=== PATIENT | female | born 1940 | race Caucasian/White ===

== ENCOUNTER → 2017-08-26 10:54 | Outpatient (CLI) | payer MEDICARE, SELFPAY ==
[2017-08-26 11:31] LABS: Amphetamine Urine VISTA NEGATIVE (<1000 ng/mL); Barbiturate Urine VISTA NEGATIVE (< 200 ng/mL); Benzodiazepine Urine VISTA NEGATIVE (< 200 ng/mL); Cocaine Urine VISTA NEGATIVE (< 300 ng/mL); Ecstacy Urine VISTA NEGATIVE (< 500 ng/mL); Methadone Urine VISTA POSITIVE (< 300 ng/mL); PCP Urine VISTA NEGATIVE (< 25 ng/mL); THC Urine VISTA NEGATIVE (< 50 ng/mL); Vista UDS pH Range 5
== END ==
PROVIDERS: Family Provider Family Medicine; PCP Family Medicine; Visit Provider Anesthesiology Pain Medicine
DX: F11.20 Opioid dependence, uncomplicated (principal)
CPT/HCPCS: 80307

== ENCOUNTER → 2018-07-13 09:50 | Outpatient (CLI) | payer MEDICARE, SELFPAY ==
[2018-07-13 11:07] LABS: Amphetamine Urine VISTA NEGATIVE (<1000 ng/mL); Barbiturate Urine VISTA NEGATIVE (< 200 ng/mL); Benzodiazepine Urine VISTA NEGATIVE (< 200 ng/mL); Cocaine Urine VISTA NEGATIVE (< 300 ng/mL); Ecstacy Urine VISTA NEGATIVE (< 500 ng/mL); Methadone Urine VISTA POSITIVE (< 300 ng/mL); PCP Urine VISTA NEGATIVE (< 25 ng/mL); THC Urine VISTA NEGATIVE (< 50 ng/mL); Vista UDS pH Range 5
== END ==
PROVIDERS: Referring Provider Anesthesiology Pain Medicine; Visit Provider Anesthesiology Pain Medicine
DX: F11.20 Opioid dependence, uncomplicated (principal)
CPT/HCPCS: 80307

== ENCOUNTER 2018-10-11 23:55 | Inpatient (IN) | payer MEDICARE, SELFPAY ==
[2018-10-12 00:10] VITALS: BP 138/44; PULSE 63; RESP 18; TEMP 37.1; O2SAT 100
[2018-10-12 00:18] VITALS: BMI 27.5
--- NOTE | 2018-10-12 00:36 | RAD_ITS ---
STUDY: X-RAY - ABDOMEN/PELVIS REASON FOR EXAM: Female, 78 years old. Abdominal pain. TECHNIQUE: AP supine abdomen COMPARISON: None. FINDINGS: Normal visualized lung bases. There is an unremarkable bowel gas pattern. Stool is present throughout the colon which may represent constipation. There is no demonstrated free abdominal air. The visualized liver, spleen and kidneys are grossly normal in size and morphology. Normal soft tissue structures. Postoperative changes of lumbar fusion. Bilateral rods and pedicle screws. Surgical clips right upper quadrant. RAD/Abdomen Single View IMPRESSION: Nonspecific bowel gas pattern without evidence of obstruction. Consider constipation. Electronically Signed: Alexander Canseco MD at 7:29 EDT , Service support ,
[2018-10-12 00:38] VITALS: BMI 27.5
[2018-10-12] MEDS: Morphine 2 MG/ML Syringe IV ×5 (00:58→20:14)
[2018-10-12] MEDS: metroNIDAZOLE 500 MG/100 ML BAG 100 MG IV ×4 (00:59→21:59)
[2018-10-12] MEDS: MELATONIN 3 MG TABLET PO (00:59)
[2018-10-12] MEDS: 0.9% Normal Saline 1,000 ML 100 ML IV ×2 (02:32→14:38)
[2018-10-12] MEDS: Ceftriaxone 1 GM/50 ML BAG IV (02:32)
--- NOTE | 2018-10-12 02:32 | PCM.HP.STD ---
Problem List (1) Ureteric stone Status: Acute (2) Diverticulitis Status: Suspected (3) SADIA (acute kidney injury) Status: Acute History of Present Illness Date of Admission: 10/12/18 Chief Complaint: left inguinal pain The patient is a 78 year old F with a significant history of chronic back pain and arthritis; previous history of pancreatitis; hypertension and depression who presented to the emergency department at [facility] with progressively worsening excruciating nonradiating left inguinal pain that started 2 days before presentation. Her pain worsens with movement. She takes methadone chronically for back pain and it helped a little bit with a left inguinal pain. Associated with her symptoms is a subjective fever without chills. Also she reports she reports nausea with dry heaving but without vomiting. She reports a decrease in her frequency of urination. Further, she has anorexia. She thought her symptoms was similar to her previous history of pancreatitis. At the [facility] CT of the abdomen showed left perirenal stranding and 5 mm left distal ureteric stone. Also notably patient had elevated leukocytosis of 18,700. Because ED doctor was concern of probable diverticular disease on CT of the abdomen the case was again discussed with radiologist. Per emergency department doctor upon further discussion with radiologist, radiologist thought diverticular disease was inconclusive as patient had rods at her back that interfered with imaging; plus imaging was done without contrast Patient was empirically started on Zosyn at [facility] for probable diverticular disease. Because [facility] did not have urology service, the patient was transferred to our hospital. Past Medical History Medical History: Medical History (Last Updated 10/12/18 @ 02:55 by Jonah Levi MD) Chronic back pain M54.9, G89.29 Allergies amphetamine [From Adderall] Allergy (Verified 10/12/18 00:22) Unknown aspirin Allergy (Verified 10/12/18 00:22) Bleeding dextroamphetamine [From Adderall] Allergy (Verified 10/12/18 00:22) Unknown gabapentin [From Neurontin] Allergy (Verified 10/12/18 00:22) Unknown tramadol [From Ultram] Allergy (Verified 10/12/18 00:22) Unknown Home Medications: Ambulatory Orders Medication Instructions Recorded Amlodipine Besylate 5 mg PO DAILY 10/12/18 Duloxetine Hcl [Cymbalta] 60 mg PO DAILY 10/12/18 Lisinopril 5 mg PO DAILY 10/12/18 Methadone HCl 10 mg PO TID 10/12/18 Omeprazole 40 mg PO DAILY 10/12/18 Ondansetron HCl 4 mg PO Q8H PRN PRN 10/12/18 Surgical History: appendectomy, hysterectomy, - - back surgery x 2. Back surgery with rods Lives: Alone Smoking Status: Former smoker - Quit smoking May 2018 after diagnosis of sepsis due to pneumonia. - *Family History Maternal History Items: - - HER MOTHER AT AGE 31; AND SHE DOES NOT KNOW HER MATERNAL MEDICAL HISTORY Paternal History Items: Diabetes, Hypertension, - - Brain aneursym Review of Systems Constitutional: Reports: Fever - subjective. Denies: Chills, Weight Change HEENT: Denies: Head Aches, Sinus Congestion, Sinus Drainage Cardiovascular: Denies: Chest Pain, Palpitations Respiratory: Denies: Cough, Shortness of breath at rest, Sputum production Gastrointestinal: Reports: Abdominal Pain, Nausea. Denies: Vomiting Genitourinary: Reports: Frequency - decrease frequency. Denies: Dysuria Musculoskeletal: Denies: Joint Pain, Joint Tenderness Skin: Denies: Rash, Wounds Neurological: Denies: Numbness, Tingling, Focal weakness Psychiatric: Denies: Anxiety, Depression, Homicidal Ideations, Suicidal Ideations Hematologic/ Lymphatic: Denies: Easy Bruising, Easy Bleeding VTE Information - Inpt Only VTE Present on Admission: No VTE Mechan Device Prophylaxis: SCD's VTE Pharm Prophylaxis ordered?: No Patient Problems: Active and Suspected Problems (Last Updated 10/12/18 @ 02:55 by Jonah Levi MD) Ureteric stone (Acute) Diverticulitis (Suspected) SADIA (acute kidney injury) (Acute) - Physical Exam General: Alert, Oriented x3, Cooperative HEENT: Atraumatic, PERRLA, EOMI, Normocephalic Neck: Supple, No JVD, Negative Carotid Bruits Lungs: Clear to auscultation, Normal air movement Cardiovascular: Regular rate, No murmurs Abdomen: Bowel Sounds Present, Soft, Tender - left lower quadrant. Extremities: No edema, Capillary Refill Less than 3 Seconds Skin: No rashes, No breakdown Musculoskeletal: No Tenderness to Palpation of Joints or Extremities Neurological: Cranial nerves II-XII grossly intact Psych/Mental Status: Normal Affect, Appropriate Vital Signs Temp Pulse Resp BP Pulse Ox 98.7 F 63 18 138/44 H 100 10/12/18 00:10 10/12/18 00:10 10/12/18 00:10 10/12/18 00:10 10/12/18 00:10 Oxygen Delivery Method Room Air Weight: 70.443 kg Body Mass Index (BMI) 27.5 Assessment/Plan All Active Problems (Last Updated 10/12/18 @ 02:55 by Jonah Levi MD) Ureteric stone (Acute) SADIA (acute kidney injury) (Acute) The patient is a 78 year old F with a significant history of chronic back pain and arthritis; previous history of pancreatitis; hypertension and depression who presented to the emergency department at [facility] with progressively worsening excruciating nonradiating left inguinal pain and found to have left perinephric stranding; left 5 mm ureteric stone; leukocytosis; elevated creatinine above baseline and probable diverticular inflammation. Left ureteric stone. At [facility] urinalysis was abnormal but CT scan showed left daniela-nephric stranding access and 5mm left ureteric stone The case was discussed with Dr. Garcia who is interested in following patient. Dr. Garcia recommended KUB; ordered. We will keep patient n.p.o. Hold all home p.o. medications except methadone to prevent withdrawal. PRN morphine ordered. Supportive treatment with IV fluids and antiemetics, Zofran. PT/INR ordered Probable diverticulitis. At [facility] urinalysis CT scan was not conclusive of diverticular disease. Patient was started on Zosyn in the emergency department. Because of SADIA we will hold on Zosyn for now. Scheduled ceftriaxone and metronidazole ordered. Trend CBC. NPO SADIA At [facility] her creatinine was 2.1; and her BUN was 31. Emergency department doctor reported that in May of this year (at [facility]) patient was diagnosed with sepsis due to pneumonia and her creatinine at that time was 2.8. Her creatinine at that time trended to 1.4. Emergency doctor reported baseline creatinine of 1.2-1.4. Gentle normal saline hydration. Avoid nephrotoxics Hold Lisinopril Trend BMP. Hypertension On presentation her systolic blood pressure was not within goal but fairly stable. Because of n.p.o. status hold amlodipine. Lisinopril held because of SADIA PRN Hydralazine IV ordered. DVT prophylaxis SCD. Consider chemical thromboprophylaxis after probable urologic procedure Code Visit Inpatient E&M: 92253 Init Hosp L3
--- NOTE | 2018-10-12 02:52 | HP.PCM_ITS ---
Problem List (1) Ureteric stone Status: Acute (2) Diverticulitis Status: Suspected (3) SADIA (acute kidney injury) Status: Acute History of Present Illness Date of Admission: 10/12/18 Chief Complaint: left inguinal pain The patient is a 78 year old F with a significant history of chronic back pain and arthritis; previous history of pancreatitis; hypertension and depression who presented to the emergency department at [facility] with progressively worsening excruciating nonradiating left inguinal pain that started 2 days before presentation. Her pain worsens with movement. She takes methadone chronically for back pain and it helped a little bit with a left inguinal pain. Associated with her symptoms is a subjective fever without chills. Also she reports she reports nausea with dry heaving but without vomiting. She reports a decrease in her frequency of urination. Further, she has anorexia. She thought her symptoms was similar to her previous history of pancreatitis. At the [facility] CT of the abdomen showed left perirenal stranding and 5 mm left distal ureteric stone. Also notably patient had elevated leukocytosis of 18,700. Because ED doctor was concern of probable diverticular disease on CT of the abdomen the case was again discussed with radiologist. Per emergency department doctor upon further discussion with radiologist, radiologist thought diverticular disease was inconclusive as patient had rods at her back that interfered with imaging; plus imaging was done without contrast Patient was empirically started on Zosyn at [facility] for probable diverticular disease. Because [facility] did not have urology service, the patient was transferred to our hospital. Past Medical History Medical History: Medical History (Last Updated 10/12/18 @ 02:55 by Jonah Levi MD) Chronic back pain M54.9, G89.29 Allergies amphetamine [From Adderall] Allergy (Verified 10/12/18 00:22) Unknown aspirin Allergy (Verified 10/12/18 00:22) Bleeding dextroamphetamine [From Adderall] Allergy (Verified 10/12/18 00:22) Unknown gabapentin [From Neurontin] Allergy (Verified 10/12/18 00:22) Unknown tramadol [From Ultram] Allergy (Verified 10/12/18 00:22) Unknown Home Medications: Ambulatory Orders Medication Instructions Recorded Amlodipine Besylate 5 mg PO DAILY 10/12/18 Duloxetine Hcl [Cymbalta] 60 mg PO DAILY 10/12/18 Lisinopril 5 mg PO DAILY 10/12/18 Methadone HCl 10 mg PO TID 10/12/18 Omeprazole 40 mg PO DAILY 10/12/18 Ondansetron HCl 4 mg PO Q8H PRN PRN 10/12/18 Surgical History: appendectomy, hysterectomy, - - back surgery x 2. Back surgery with rods Lives: Alone Smoking Status: Former smoker - Quit smoking May 2018 after diagnosis of sepsis due to pneumonia. - *Family History Maternal History Items: - - HER MOTHER AT AGE 31; AND SHE DOES NOT KNOW HER MATERNAL MEDICAL HISTORY Paternal History Items: Diabetes, Hypertension, - - Brain aneursym Review of Systems Constitutional: Reports: Fever - subjective. Denies: Chills, Weight Change HEENT: Denies: Head Aches, Sinus Congestion, Sinus Drainage Cardiovascular: Denies: Chest Pain, Palpitations Respiratory: Denies: Cough, Shortness of breath at rest, Sputum production Gastrointestinal: Reports: Abdominal Pain, Nausea. Denies: Vomiting Genitourinary: Reports: Frequency - decrease frequency. Denies: Dysuria Musculoskeletal: Denies: Joint Pain, Joint Tenderness Skin: Denies: Rash, Wounds Neurological: Denies: Numbness, Tingling, Focal weakness Psychiatric: Denies: Anxiety, Depression, Homicidal Ideations, Suicidal Ideations Hematologic/ Lymphatic: Denies: Easy Bruising, Easy Bleeding VTE Information - Inpt Only VTE Present on Admission: No VTE Mechan Device Prophylaxis: SCD's VTE Pharm Prophylaxis ordered?: No Patient Problems: Active and Suspected Problems (Last Updated 10/12/18 @ 02:55 by Jonah Levi MD) Ureteric stone (Acute) Diverticulitis (Suspected) SADIA (acute kidney injury) (Acute) - Physical Exam General: Alert, Oriented x3, Cooperative HEENT: Atraumatic, PERRLA, EOMI, Normocephalic Neck: Supple, No JVD, Negative Carotid Bruits Lungs: Clear to auscultation, Normal air movement Cardiovascular: Regular rate, No murmurs Abdomen: Bowel Sounds Present, Soft, Tender - left lower quadrant. Extremities: No edema, Capillary Refill Less than 3 Seconds Skin: No rashes, No breakdown Musculoskeletal: No Tenderness to Palpation of Joints or Extremities Neurological: Cranial nerves II-XII grossly intact Psych/Mental Status: Normal Affect, Appropriate Vital Signs Temp Pulse Resp BP Pulse Ox 98.7 F 63 18 138/44 H 100 10/12/18 00:10 10/12/18 00:10 10/12/18 00:10 10/12/18 00:10 10/12/18 00:10 Oxygen Delivery Method Room Air Weight: 70.443 kg Body Mass Index (BMI) 27.5 Assessment/Plan All Active Problems (Last Updated 10/12/18 @ 02:55 by Jonah Levi MD) Ureteric stone (Acute) SADIA (acute kidney injury) (Acute) The patient is a 78 year old F with a significant history of chronic back pain and arthritis; previous history of pancreatitis; hypertension and depression who presented to the emergency department at [facility] with progressively worsening excruciating nonradiating left inguinal pain and found to have left perinephric stranding; left 5 mm ureteric stone; leukocytosis; elevated creatinine above baseline and probable diverticular inflammation. Left ureteric stone. At [facility] urinalysis was abnormal but CT scan showed left daniela- nephric stranding access and 5mm left ureteric stone The case was discussed with Dr. Garcia who is interested in following patient. Dr. Garcia recommended KUB; ordered. We will keep patient n.p.o. Hold all home p.o. medications except methadone to prevent withdrawal. PRN morphine ordered. Supportive treatment with IV fluids and antiemetics, Zofran. PT/INR ordered Probable diverticulitis. At [facility] urinalysis CT scan was not conclusive of diverticular disease. Patient was started on Zosyn in the emergency department. Because of SADIA we will hold on Zosyn for now. Scheduled ceftriaxone and metronidazole ordered. Trend CBC. NPO SADIA At [facility] her creatinine was 2.1; and her BUN was 31. Emergency department doctor reported that in May of this year (at [facility]) patient was diagnosed with sepsis due to pneumonia and her creatinine at that time was 2.8. Her creatinine at that time trended to 1.4. Emergency doctor reported baseline creatinine of 1.2-1.4. Gentle normal saline hydration. Avoid nephrotoxics Hold Lisinopril Trend BMP. Hypertension On presentation her systolic blood pressure was not within goal but fairly stable. Because of n.p.o. status hold amlodipine. Lisinopril held because of SADIA PRN Hydralazine IV ordered. DVT prophylaxis SCD. Consider chemical thromboprophylaxis after probable urologic procedure Code Visit Inpatient E&M: 84441 Init Hosp L3
[2018-10-12] MEDS: Methadone 10 MG Tablet PO ×3 (05:50→22:04)
[2018-10-12 05:59] VITALS: BP 135/66; PULSE 68; RESP 18; TEMP 37.3; O2SAT 94
[2018-10-12 06:37] LABS: Anion Gap 9 (5-15); BUN 29 mg/dL (7-18); BUN/Creat Ratio 13.9 RATIO (10-20); Calcium,Total 7.9 mg/dL (8.5-10.1); Chloride 108 mmol/L (98-107); Creatinine, Serum 2.08 mg/dL (0.55-1.02); EST Glomerular Filtration Rate 25 mL/min (>60); Est Glom Filt Rate - Afr Amer 30 mL/min (>60); Estimated Creatinine Clearance 18.44 ml/min; Glucose 107 mg/dL (74-106); Potassium 4.2 mmol/L (3.5-5.1); Sodium Level 139 mmol/L (136-145)
[2018-10-12 06:57] LABS: Absolute Neutrophil Count 5.9 X10^3/uL (2.0-7.7); Basophil# 0.03 X10^3/uL; Basophil% 0.3 % (0-1); Eosinophils% 0.9 % (0-5); Hematocrit 31.9 % (37-47); Hemoglobin 9.8 g/dl (12.0-15.0); Lymphocyte % 31.4 % (19-41); Mean Corp Hgb Conc 30.7 g/gl (32-36); Mean Corpuscular Hgb 24.8 pg (27.0-32.0); Mean Corpuscular Volume 80.8 fL (81-99); Mean Platelet Vol. 10.8 fl (6.2-12.0); Monocyte# 1.29 X10^3/uL; Monocyte% 11.9 % (0-10); Neutrophil # 5.93 X10^3/uL (2.7-7.7); Neutrophil % 54.9 % (47-70); Platelet Count 284 K/mm3 (150-450); RBC Distribution Width CV 15.2 % (11.6-14.6); RBC Distribution Width SD 44.2 fl (35.1-43.9); Red Blood Count 3.95 M/mm3 (4.2-5.4); White Blood Count 10.8 K/mm3 (4.4-11.0)
[2018-10-12 06:58] LABS: POSITIVE COUNT NO; POSITIVE DIFFERENTIAL NO; POSITIVE MORPHOLOGY NO
[2018-10-12 07:12] VITALS: O2SAT 96
[2018-10-12 07:22] LABS: International Normalized Ratio 1.1; Prothrombin Time (Protime)PT. 14.4 SECONDS (11.7-14.9)
--- NOTE | 2018-10-12 07:44 | CON.PCM_ITS ---
Reason for Consult Date of Consultation: 10/12/18 Reason for Consultation: Left distal kidney stone History of Present Illness: The patient is a 78 year old female who was a transfer her to an outside hospital with an elevated white count of 18,000 question of diverticular disease and also apparently has a 5 mm stone in the distal left ureter. Today she complains still having pain in the left inguinal area. No nausea or vomiting. Today her white blood count is normal. No fevers or chills. Past Medical History Medical History: Medical History (Last Reviewed 10/12/18 @ 07:42 by Sabas Gacria MD) Chronic back pain M54.9, G89.29 Allergies amphetamine [From Adderall] Allergy (Verified 10/12/18 00:22) Unknown aspirin Allergy (Verified 10/12/18 00:22) Bleeding dextroamphetamine [From Adderall] Allergy (Verified 10/12/18 00:22) Unknown gabapentin [From Neurontin] Allergy (Verified 10/12/18 00:22) Unknown tramadol [From Ultram] Allergy (Verified 10/12/18 00:22) Unknown Home Medications: Ambulatory Orders Medication Instructions Recorded Amlodipine Besylate 5 mg PO DAILY 10/12/18 Duloxetine Hcl [Cymbalta] 60 mg PO DAILY 10/12/18 Lisinopril 5 mg PO DAILY 10/12/18 Methadone HCl 10 mg PO TID 10/12/18 Omeprazole 40 mg PO DAILY 10/12/18 Ondansetron HCl 4 mg PO Q8H PRN PRN 10/12/18 Surgical History: appendectomy, hysterectomy, - - back surgery x 2. 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 - *Family History Maternal History Items: - - HER MOTHER AT AGE 31; AND SHE DOES NOT KNOW HER MATERNAL MEDICAL HISTORY Paternal History Items: Diabetes, Hypertension, - - Brain aneursym Review of Systems Constitutional: Denies: Chills, Fever, Weight Change HEENT: Denies: Head Aches, Sinus Congestion, Sinus Drainage Cardiovascular: Denies: Chest Pain, Palpitations Respiratory: Denies: Cough, Shortness of breath at rest, Sputum production Gastrointestinal: Reports: Abdominal Pain. Denies: Nausea, Vomiting Genitourinary: Denies: Dysuria Musculoskeletal: Denies: Joint Pain, Joint Tenderness Skin: Denies: Rash, Wounds Neurological: Denies: Numbness, Tingling, Focal weakness Psychiatric: Denies: Anxiety, Depression, Homicidal Ideations, Suicidal Ideations Hematologic/ Lymphatic: Denies: Easy Bruising, Easy Bleeding Physical Exam - Physical Exam Vital Signs Temp 99.1 F 10/12/18 05:59 Pulse 68 10/12/18 05:59 Resp 18 10/12/18 05:59 BP 135/66 H 10/12/18 05:59 Pulse Ox 94 10/12/18 05:59 Intake & Output 10/10/18 10/11/18 10/12/18 23:59 23:59 23:59 Intake Total 571 / 571 Output Total 300 / 300 Balance 271 / 271 Weight: 70.443 kg Intake: IV fluid/meds 571 / 571 Output: Urine 300 / 300 General: Alert, Oriented x3 HEENT: Atraumatic Oral: Moist Mucosa Neck: Supple Lungs: Normal air movement Cardiovascular: Regular rate Laboratory Tests Past 24 Hrs 10/12/18 10/12/18 10/12/18 06:02 06:02 06:02 WBC 10.8 RBC 3.95 L Hgb 9.8 L Hct 31.9 L MCV 80.8 L MCH 24.8 L MCHC 30.7 L RDW 15.2 H RDW Differential 44.2 H Plt Count 284 MPV 10.8 Immature Gran % (Auto) 0.600 Neut % (Auto) 54.9 Lymph % (Auto) 31.4 Wallace % (Auto) 11.9 H Eos % (Auto) 0.9 Baso % (Auto) 0.3 Absolute Neuts (auto) 5.9 Absolute Lymphs (auto) 3.40 Total Counted Not Reportable PT 14.4 INR 1.1 Sodium 139 Potassium 4.2 Chloride 108 H Carbon Dioxide 22.0 Anion Gap 9 BUN 29 H Creatinine 2.08 H Estim Creat Clear Calc 18.44 Est GFR (MDRD) Af Amer 30 L Est GFR (MDRD) Non-Af 25 L BUN/Creatinine Ratio 13.9 Glucose 107 H Calcium 7.9 L Assessment/Plan All Active Problems (Last Reviewed 10/12/18 @ 07:42 by Sabas Garcia MD) Ureteric stone (Acute) SADIA (acute kidney injury) (Acute) 78-year-old female with obstructing stone in the distal left ureter. White blood count down to 10. No fevers or chills. Clinically stable does not look septic. We will have her regular food today do not anticipate doing any emergent procedure today we will add her to the schedule for Friday for left ESWL. She is agreeable with this also will place a left stent at the same time.
[2018-10-12] MEDS: Ondansetron 4 MG/2 ML Vial IV (08:37)
[2018-10-12 10:00] VITALS: BP 111/45; PULSE 80; RESP 16; TEMP 36.9; O2SAT 95
[2018-10-12] MEDS: Famotidine 20mg IV Push Syringe Q24 300 MG IV (10:03)
--- NOTE | 2018-10-12 11:15 | CASEMGMT ---
RN MIRNA Face to Face with patient for initial transition planning/care coordination assessment. RN CM introduced self and role at [facility]. Patient lying in bed, alert and oriented. Patient willing to participate in assessment and is able to answer all questions appropriately. Care providers, pharmacy, and demographics verified. Patient wishes to discharge home, denies need for home health at this time. Patient states she has no further needs or concerns at this time. CM to follow for discharge planning needs that may arise. PCP: Nii Specialists: Horacio, pain clinic Preferred Pharmacy: [facility] Insurance: [facility] Prescription Benefit: Yes Living Will/HPOA: yes, son Todd Casillas LNOK: Son and daughter in law Living Arrangements: Patient states that she lives on the same property as her son in a 1 story home with ramp to enter the home. Patient states she is independent for self care. Transportation: son or daughter in law DME/HHC: Patient states she has shower chair, raised toilet, walker, rollator, WC, and grab bars at home. Patient denies previous HHC. States she has been to SNF [address] in [place] before. Disposition Plan: Patient to discharge home with family support and follow-up plans in place. Kerry PEREA, RN, CM
[2018-10-12] MEDS: Magnesium Hydroxide 30 ML UDC 45 ML PO (14:39)
[2018-10-12 14:45] VITALS: BP 141/58; PULSE 90; RESP 18; TEMP 36.6; O2SAT 97
--- NOTE | 2018-10-12 17:45 | PCM.PROGNOTE ---
Patient Problems: Active and Suspected Problems (Last Reviewed 10/12/18 @ 07:42 by Sabas Garcia MD) Ureteric stone (Acute) Diverticulitis (Suspected) SADIA (acute kidney injury) (Acute) Subjective: Patient is a 78-year-old female transferred to [facility] on 10/12/2018 from [facility] with a complaint of severe abdominal pain. Her past medical history is significant for chronic back pain, methadone dependence, osteoarthritis, history of pancreatitis, hypertension and depression. She initially presented to the [facility] complaining of severe left inguinal pain that started 2 days ago. The pain increases with movement. She had a subjective fever but did not take her temperature. She denied any shaking chills. She denied dysuria. She did complain of nausea with no emesis. CT scan of the abdomen and pelvis done in [facility] showed left perirenal stranding and a 5 mm left distal ureteral stone. White blood cell count was elevated at 18.7. There was also an inconclusive dx of possible diverticular disease. she denies diarrhea. She thinks her last BM was 10/11. Her bowels sometimes do not move well due to Methadone. She is not on a stool softener. KUB done at [facility] showed stool present throughout the colon. She is also c/o left flank pain. I walked in when she was eating her lunch and she ate about 1/2 - 2/3 of her meal.......the soup was too spicy. She did not appear to be in any acute distress. She is afebrile. All lab was personally reviewed. The white blood cell count today is 10.8 down from 18.7 at [facility] Hemoglobin is low at 9.8 and the platelets are within normal limits. The MCV is low at 80.8 with an RDW of 15.2. 29 with a creatinine of 2.08 and a BUN/creatinine ratio of 13.9. She denies any history of chronic renal failure. She also denies any history of nephrolithiasis. Admitted to the hospital and started on Rocephin and metronidazole. - Physical Exam General: Alert, Oriented x3, Cooperative, No apparent distress, Well developed, Well nourished HEENT: Atraumatic, Normocephalic Neck: Supple Lungs: Clear to auscultation Cardiovascular: Regular rate, Regular Rhythm, No murmurs, No Gallop Abdomen: Bowel Sounds Present, Soft, Non-Distended, Tender - in the left flank and the left inguinal area.....also tender in the RLQ and also has chest tenderness, etc Extremities: No cyanosis, No edema Musculoskeletal: Arthritic Changes Neurological: Cranial nerves II-XII grossly intact, Neuro grossly intact Psych/Mental Status: Appropriate Vital Signs Temp Pulse Resp BP Pulse Ox 97.9 F 90 18 141/58 H 97 10/12/18 14:45 10/12/18 14:45 10/12/18 14:45 10/12/18 14:45 10/12/18 14:45 Oxygen Delivery Method Room Air Weight: 155 lb 4.8 oz Body Mass Index (BMI) 27.5 Intake and Output for Last 24 Hours 10/10/18 10/11/18 10/12/18 23:59 23:59 23:59 Intake Total 2334 / 2334 Output Total 500 / 500 Balance 1834 / 1834 Laboratory Tests Past 24 Hrs 10/12/18 10/12/18 10/12/18 06:02 06:02 06:02 WBC 10.8 RBC 3.95 L Hgb 9.8 L Hct 31.9 L MCV 80.8 L MCH 24.8 L MCHC 30.7 L RDW 15.2 H RDW Differential 44.2 H Plt Count 284 MPV 10.8 Immature Gran % (Auto) 0.600 Neut % (Auto) 54.9 Lymph % (Auto) 31.4 [place] % (Auto) 11.9 H Eos % (Auto) 0.9 Baso % (Auto) 0.3 Absolute Neuts (auto) 5.9 Absolute Lymphs (auto) 3.40 Total Counted Not Reportable PT 14.4 INR 1.1 Sodium 139 Potassium 4.2 Chloride 108 H Carbon Dioxide 22.0 Anion Gap 9 BUN 29 H Creatinine 2.08 H Estim Creat Clear Calc 18.44 Est GFR (MDRD) Af Amer 30 L Est GFR (MDRD) Non-Af 25 L BUN/Creatinine Ratio 13.9 Glucose 107 H Calcium 7.9 L Medical Necessity - Tobacco Use Smoking Status: Former smoker - Quit smoking May 2018 after diagnosis of sepsis due to pneumonia. Assessment/Plan All Active Problems (Last Reviewed 10/12/18 @ 07:42 by Sabas Garcia MD) Ureteric stone (Acute) SADIA (acute kidney injury) (Acute) Impressions 1. abdominal pain with leukocytosis - etiology? due to diverticulitis? stone in the distal left ureter? pyelonephritis? 2. ARF on CRF? ED at [facility] stated the baseline creat is 1.2 - 1.4. 3. Nephrolithiasis with stone in the distal left ureter-seen by Dr. Garcia who planned surgery on Friday 4. Chronic pain syndrome/chronic back pain-follows with Dr. Dr. Leonard and is dependent on methadone 5. Hypertension 6. History of pancreatitis 7. History of depression 8. Cs-dembsc-alih smoking in May 2018 Attempt to get records/baseline labs from her PCP SAPPHIRE Murillo and georgie Mercedesro for reported diverticulitis Review Findings of the UA done at [facility] surgery planned for Wed by Dr. Garcia
--- NOTE | 2018-10-12 17:52 | PN_ITS ---
Patient Problems: Active and Suspected Problems (Last Reviewed 10/12/18 @ 07:42 by Sabas Garcia MD) Ureteric stone (Acute) Diverticulitis (Suspected) SADIA (acute kidney injury) (Acute) Subjective: Patient is a 78-year-old female transferred to [facility] on 10/12/2018 from [facility] with a complaint of severe abdominal pain. Her past medical history is significant for chronic back pain, methadone dependence, osteoarthritis, history of pancreatitis, hypertension and depression. She initially presented to the [facility] complaining of severe left inguinal pain that started 2 days ago. The pain increases with movement. She had a subjective fever but did not take her temperature. She denied any shaking chills. She denied dysuria. She did complain of nausea with no emesis. CT scan of the abdomen and pelvis done in [facility] showed left perirenal stranding and a 5 mm left distal ureteral stone. White blood cell count was elevated at 18.7. There was also an inconclusive dx of possible diverticular disease. she denies diarrhea. She thinks her last BM was 10/11. Her bowels sometimes do not move well due to Methadone. She is not on a stool softener. KUB done at [facility] showed stool present throughout the colon. She is also c/o left flank pain. I walked in when she was eating her lunch and she ate about 1/2 - 2/3 of her meal.......the soup was too spicy. She did not appear to be in any acute distress. She is afebrile. All lab was personally reviewed. The white blood cell count today is 10.8 down from 18.7 at [facility]. Hemoglobin is low at 9.8 and the platelets are within normal limits. The MCV is low at 80.8 with an RDW of 15.2. 29 with a creatinine of 2.08 and a BUN/creatinine ratio of 13.9. She denies any history of chronic renal failure. She also denies any history of nephrolithiasis. Admitted to the hospital and started on Rocephin and metronidazole. - Physical Exam General: Alert, Oriented x3, Cooperative, No apparent distress, Well developed, Well nourished HEENT: Atraumatic, Normocephalic Neck: Supple Lungs: Clear to auscultation Cardiovascular: Regular rate, Regular Rhythm, No murmurs, No Gallop Abdomen: Bowel Sounds Present, Soft, Non-Distended, Tender - in the left flank and the left inguinal area.....also tender in the RLQ and also has chest tenderness, etc Extremities: No cyanosis, No edema Musculoskeletal: Arthritic Changes Neurological: Cranial nerves II-XII grossly intact, Neuro grossly intact Psych/Mental Status: Appropriate Vital Signs Temp Pulse Resp BP Pulse Ox 97.9 F 90 18 141/58 H 97 10/12/18 14:45 10/12/18 14:45 10/12/18 14:45 10/12/18 14:45 10/12/18 14:45 Oxygen Delivery Method Room Air Weight: 155 lb 4.8 oz Body Mass Index (BMI) 27.5 Intake and Output for Last 24 Hours 10/10/18 10/11/18 10/12/18 23:59 23:59 23:59 Intake Total 2334 / 2334 Output Total 500 / 500 Balance 1834 / 1834 Laboratory Tests Past 24 Hrs 10/12/18 10/12/18 10/12/18 06:02 06:02 06:02 WBC 10.8 RBC 3.95 L Hgb 9.8 L Hct 31.9 L MCV 80.8 L MCH 24.8 L MCHC 30.7 L RDW 15.2 H RDW Differential 44.2 H Plt Count 284 MPV 10.8 Immature Gran % (Auto) 0.600 Neut % (Auto) 54.9 Lymph % (Auto) 31.4 [place] % (Auto) 11.9 H Eos % (Auto) 0.9 Baso % (Auto) 0.3 Absolute Neuts (auto) 5.9 Absolute Lymphs (auto) 3.40 Total Counted Not Reportable PT 14.4 INR 1.1 Sodium 139 Potassium 4.2 Chloride 108 H Carbon Dioxide 22.0 Anion Gap 9 BUN 29 H Creatinine 2.08 H Estim Creat Clear Calc 18.44 Est GFR (MDRD) Af Amer 30 L Est GFR (MDRD) Non-Af 25 L BUN/Creatinine Ratio 13.9 Glucose 107 H Calcium 7.9 L Medical Necessity - Tobacco Use Smoking Status: Former smoker - Quit smoking May 2018 after diagnosis of sepsis due to pneumonia. Assessment/Plan All Active Problems (Last Reviewed 10/12/18 @ 07:42 by Sabas Garcia MD) Ureteric stone (Acute) SADIA (acute kidney injury) (Acute) Impressions 1. abdominal pain with leukocytosis - etiology? due to diverticulitis? stone in the distal left ureter? pyelonephritis? 2. ARF on CRF? ED at [facility] stated the baseline creat is 1.2 - 1.4. 3. Nephrolithiasis with stone in the distal left ureter-seen by Dr. Garcia who planned surgery on Friday 4. Chronic pain syndrome/chronic back pain-follows with Dr. Dr. Leonard and is dependent on methadone 5. Hypertension 6. History of pancreatitis 7. History of depression 8. Km-anzsce-nhwt smoking in May 2018 Attempt to get records/baseline labs from her PCP SAPPHIRE Murillo and georgie Mercedesro for reported diverticulitis Review Findings of the UA done at [facility] surgery planned for Wed by Dr. Garcia
[2018-10-12 20:04] VITALS: BP 141/55; PULSE 84; RESP 20; TEMP 37.4; O2SAT 95
[2018-10-12] MEDS: 0.9% NaCl Peripheral Flush Adult/Peds IV (20:14)
[2018-10-12] MEDS: Acetaminophen 325 MG Tablet 650 MG PO (20:14)
[2018-10-12] MEDS: Zolpidem Tartrate 5 MG Tablet PO (22:18)
[2018-10-12] MEDS: Ciprofloxacin 200 MG/100 ML BAG 100 MG IV (23:16)
[2018-10-13] MEDS: Morphine 2 MG/ML Syringe IV ×6 (02:43→23:41)
[2018-10-13] MEDS: 0.9% NaCl Peripheral Flush Adult/Peds IV ×4 (02:43→13:12)
[2018-10-13 02:51] VITALS: BP 144/53; PULSE 82; RESP 18; TEMP 36.8; O2SAT 93
--- NOTE | 2018-10-13 04:44 | NURSING ---
BRA[employer]SEM[employer]ER NOTIFIED THIS RN THAT PT REQUESTED PAIN MEDICATION. WHEN THIS RN ENTERED PT'S ROOM, SHE WAS SLEEPING. NOT AWOKEN FOR PAIN MEDS. WILL CONTINUE TO MONITOR.
[2018-10-13] MEDS: metroNIDAZOLE 500 MG/100 ML BAG 100 MG IV ×3 (05:48→21:38)
[2018-10-13] MEDS: Methadone 10 MG Tablet PO ×3 (05:49→21:39)
[2018-10-13 06:24] LABS: Absolute Lymphocyte Count 2.68 X10^3/ul (0.83-4.51); Absolute Neutrophil Count 6.9 X10^3/uL (2.0-7.7); Basophil# 0.02 X10^3/uL; Basophil% 0.2 % (0-1); Eosinophil# 0.13 X10^3/uL; Eosinophils% 1.2 % (0-5); Hematocrit 32.8 % (37-47); Hemoglobin 10.2 g/dl (12.0-15.0); Lymphocyte # 2.68 X10^3/ul (4.0); Lymphocyte % 23.8 % (19-41); Mean Corp Hgb Conc 31.1 g/gl (32-36); Mean Corpuscular Hgb 24.9 pg (27.0-32.0); Mean Corpuscular Volume 80.2 fL (81-99); Mean Platelet Vol. 10.2 fl (6.2-12.0); Monocyte# 1.37 X10^3/uL; Monocyte% 12.1 % (0-10); Neutrophil # 6.94 X10^3/uL (2.7-7.7); Neutrophil % 61.5 % (47-70); Platelet Count 286 K/mm3 (150-450); RBC Distribution Width CV 15.3 % (11.6-14.6); RBC Distribution Width SD 44.6 fl (35.1-43.9); Red Blood Count 4.09 M/mm3 (4.2-5.4); White Blood Count 11.3 K/mm3 (4.4-11.0)
[2018-10-13 06:25] LABS: POSITIVE COUNT NO; POSITIVE DIFFERENTIAL NO; POSITIVE MORPHOLOGY NO
[2018-10-13 06:29] LABS: ALB/GLOB Ratio 0.7 RATIO (0.9-2.4); AST(SGOT) 25 U/L (15-37); Alanine Aminotransfer ALT/SGPT 42 U/L (13-56); Albumin, Serum 2.5 g/dL (3.2-5.0); Alkaline Phosphatase 117 U/L (45-117); Anion Gap 9 (5-15); BUN 21 mg/dL (7-18); BUN/Creat Ratio 10.6 RATIO (10-20); Calcium,Total 8.3 mg/dL (8.5-10.1); Chloride 108 mmol/L (98-107); Creatinine, Serum 1.98 mg/dL (0.55-1.02); EST Glomerular Filtration Rate 26 mL/min (>60); Est Glom Filt Rate - Afr Amer 31 mL/min (>60); Estimated Creatinine Clearance 19.37 ml/min; Globulin 3.8 g/dL (2.2-4.2); Glucose 121 mg/dL (74-106); Phosphorus 2.6 mg/dL (2.5-4.9); Protein, Total 6.3 g/dL (6.4-8.2); Sodium Level 140 mmol/L (136-145)
[2018-10-13 07:17] VITALS: O2SAT 93
[2018-10-13 08:45] VITALS: BP 185/75; PULSE 97; RESP 20; TEMP 36.9; O2SAT 97
[2018-10-13] MEDS: Ciprofloxacin 200 MG/100 ML BAG 100 MG IV ×2 (09:20→21:38)
[2018-10-13] MEDS: Famotidine 20mg IV Push Syringe Q24 300 MG IV (09:20)
[2018-10-13 14:38] VITALS: BP 139/57; PULSE 93; RESP 16; TEMP 36.8; O2SAT 94
--- NOTE | 2018-10-13 15:46 | PCM.PROGNOTE ---
Patient Problems: Active and Suspected Problems (Last Reviewed 10/12/18 @ 07:42 by Sabas Garcia MD) Ureteric stone (Acute) Diverticulitis (Suspected) SADIA (acute kidney injury) (Acute) Subjective: Day #3 antibiotics-metronidazole and Cipro Patient has been afebrile since admission. Vital signs are stable. 93 to 97% saturation on room air. All lab was personally reviewed. Hemoglobin is stable at 10.2. Platelets are within normal limits. The white blood cell count is 11.3 with an unremarkable differential. BUN is 21 and the creatinine is 1.98 today. LFTs are within normal limits. She has had several soft brown BM's after 1 dose of MOM yesterday asking for MS about every 2 hours in addition to the Methadone 10 mg TID no nausea and no vomiting she continues to c/o Left groin pain but, she complains of pain everywhere I touch here (even with very light touch) and she does not appear to be in any distress......no restless, no grimacing, no guarding. Objective: - Physical Exam General: Alert, Oriented x3, Cooperative, No apparent distress, Well developed, Well nourished HEENT: Atraumatic, Normocephalic Neck: Supple Lungs: Clear to auscultation Cardiovascular: Regular rate, Regular Rhythm, No murmurs, No Gallop Abdomen: Bowel Sounds Present, Soft, Distended and tympanic today, Tender - in the left flank and the left inguinal area.....also tender in the RLQ and also has chest tenderness, etc Extremities: No cyanosis, No edema Musculoskeletal: Arthritic Changes Neurological: Cranial nerves II-XII grossly intact, Neuro grossly intact Psych/Mental Status: Appropriate, flat affect - Physical Exam Vital Signs Temp Pulse Resp BP Pulse Ox 98.2 F 93 16 139/57 H 94 10/13/18 14:38 10/13/18 14:38 10/13/18 14:38 10/13/18 14:38 10/13/18 14:38 Oxygen Delivery Method Room Air Weight: 155 lb 4.8 oz Body Mass Index (BMI) 27.5 Intake and Output for Last 24 Hours 10/11/18 10/12/18 10/13/18 23:59 23:59 23:59 Intake Total 3501 / 3501 1410 / 1410 Output Total 800 / 800 900 / 900 Balance 2701 / 2701 510 / 510 Laboratory Tests Past 24 Hrs 10/13/18 10/13/18 05:42 05:42 WBC 11.3 H RBC 4.09 L Hgb 10.2 L Hct 32.8 L MCV 80.2 L MCH 24.9 L MCHC 31.1 L RDW 15.3 H RDW Differential 44.6 H Plt Count 286 MPV 10.2 Immature Gran % (Auto) 1.200 H Neut % (Auto) 61.5 Lymph % (Auto) 23.8 [place] % (Auto) 12.1 H Eos % (Auto) 1.2 Baso % (Auto) 0.2 Absolute Neuts (auto) 6.9 Absolute Lymphs (auto) 2.68 Total Counted Not Reportable Sodium 140 Potassium 4.0 Chloride 108 H Carbon Dioxide 23.0 Anion Gap 9 BUN 21 H Creatinine 1.98 H Estim Creat Clear Calc 19.37 Est GFR (MDRD) Af Amer 31 L Est GFR (MDRD) Non-Af 26 L BUN/Creatinine Ratio 10.6 Glucose 121 H Calcium 8.3 L Phosphorus 2.6 Magnesium 2.0 Total Bilirubin 0.20 AST 25 ALT 42 Alkaline Phosphatase 117 Total Protein 6.3 L Albumin 2.5 L Globulin 3.8 Albumin/Globulin Ratio 0.7 L Medical Necessity - Tobacco Use Smoking Status: Former smoker - Quit smoking May 2018 after diagnosis of sepsis due to pneumonia. Assessment/Plan All Active Problems (Last Reviewed 10/12/18 @ 07:42 by Sabas Garcia MD) Ureteric stone (Acute) SADIA (acute kidney injury) (Acute) Impressions 1. abdominal pain with leukocytosis - etiology? due to diverticulitis? stone in the distal left ureter? pyelonephritis? 2. ARF on CRF? ED at [facility] stated the baseline creat is 1.2 - 1.4. 3. Nephrolithiasis with stone in the distal left ureter-seen by Dr. Garcia who planned surgery on Friday 4. Chronic pain syndrome/chronic back pain-follows with Dr. Dr. Leonard and is dependent on methadone 5. Hypertension 6. History of pancreatitis 7. History of depression 8. [id number]-ugxt smoking in May 2018 continue current treatment surgery tomorrow with Dr. Garcia I do not think we are going to be able to use her assessment of pain to determine if she is improving. May need to repeat the CT of the abdomen and pelvis on to see where we are at. Call [facility] to see if she had any cultures done there. Code Visit Inpatient E&M: 82687 Subs Hosp L2
--- NOTE | 2018-10-13 15:55 | NURSING ---
Pt's dtr in law, Lianna- called in and left message for this RN to call and speak with her regarding pt. This RN spoke with pt and confirmed that it is ok to speak with her. Verbal consent given. This RN then attempted to call number provided and reached answering machine that states to leave a message for remy capellan.
--- NOTE | 2018-10-13 16:07 | PCA ---
[facility] IN [place] ASKED IF ANY CULTURES WERE DONE WHILE IN ED WHILE PATIENT WAS THERE PER DOCTOR NOTE. NO CULTURES WERE DONE WHILE IN ED.
[2018-10-13 20:38] VITALS: BP 152/76; PULSE 98; RESP 16; TEMP 36.9; O2SAT 96
[2018-10-13] MEDS: Zolpidem Tartrate 5 MG Tablet PO (21:46)
[2018-10-13] MEDS: Acetaminophen 325 MG Tablet 650 MG PO (23:45)
[2018-10-14] VITALS (10 sets, daily range): BP systolic 127–166; BP diastolic 62–88; PULSE 74–98; RESP 16–20; TEMP 36.6–37; O2SAT 91–97; BMI 27.5
--- NOTE | 2018-10-14 | CALC_PTH ---
PATIENT: MADDISON ZAARGOZA LOC: MS3 U#:[id number] AGE/SX: 78/F ROOM: [facility] RE10/12/[address]: Dr. Luisa Ferrell DO : 1940 BED: 1 DIS: 10/15/2018 SPEC #: [id number] RECD: 10/14/18 13:43 STATUS: LAURA REQ #: [id number] EMILY: 10/14/18 00:[address]: Sabas Garcia DEPT: SURGICAL PATHOLOGY RECD BY: Frankie Worthy ENTERED: 10/14/18 13:43 SP TYPE: Calculi OTHR DR: DO Dr. Jonah Parra MD Dr. Juan Miguel Proano, MD Tissues: CALCULI Procedures: Surgery Specimen Level I Comments: @ Ordering doctor for JAMAL edited from to @ by RGOOD at 10/14/18 1451 @ Submitting doctor edited from to @ by RGOOD at 10/14/18 1452 HEADER OPERATION: Cysto, left retro PRE-OP DIAGNOSIS: Ureteral calculi TISSUE SUBMITTED: Ureteral calculi GROSS DIAGNOSIS Fragments of stone, clinically ureteral calculi (gross only) submitted entirely for stone analysis. ANYA:gunner 10/15/18 COMMENT The calculus is submitted in its entirety for chemical stone analysis. The results from this study will be reported separately. GROSS DESCRIPTION Received in fixative is one container labeled with the patient's name and designated ureteral calculi. The specimen consists of three fragments of brownish-black stone that in aggregate measure 0.3 x 0.2 x 0.1 cm. The entire specimen is submitted for stone analysis. / ANYA:gunner 10/14/18 CPT: 95868
[2018-10-14] MEDS: metroNIDAZOLE 500 MG/100 ML BAG 100 MG IV ×3 (05:47→22:07)
[2018-10-14] MEDS: Methadone 10 MG Tablet PO ×3 (05:48→22:01)
--- NOTE | 2018-10-14 05:55 | EKG12_ITS ---
Test Reason : AM EKG Blood Pressure : / mmHG Vent. Rate : 101 BPM Atrial Rate : 101 BPM P-R Int : 182 ms QRS Dur : 076 ms QT Int : 340 ms P-R-T Axes : 067 047 063 degrees QTc Int : 440 ms Sinus tachycardia Nonspecific ST abnormality Abnormal ECG Confirmed by SIMIN GASPAR, LANEY ([id number]), online editor AMADA JASON ([id number]) on 10/16/2018 6:50:33 AM Referred By: CHERYL Confirmed By:LANEY DUVAL MD
[2018-10-14 06:16] LABS: Hematocrit 31.8 % (37-47); Hemoglobin 9.8 g/dl (12.0-15.0); Mean Corp Hgb Conc 30.8 g/gl (32-36); Mean Corpuscular Hgb 24.9 pg (27.0-32.0); Mean Corpuscular Volume 80.7 fL (81-99); Mean Platelet Vol. 10.3 fl (6.2-12.0); Platelet Count 300 K/mm3 (150-450); RBC Distribution Width CV 15.3 % (11.6-14.6); RBC Distribution Width SD 44.6 fl (35.1-43.9); Red Blood Count 3.94 M/mm3 (4.2-5.4); White Blood Count 9.6 K/mm3 (4.4-11.0)
[2018-10-14 06:17] LABS: Scan Indicated on CBC? Y/N NO
[2018-10-14 07:57] LABS: Reticulocyte Count 1.03 % (0.5-1.5)
[2018-10-14 08:13] LABS: Ferritin 41 ng/mL (8-252); Iron 27 ug/dL (50-170); Iron Binding Capacity,Total 290 ug/dL (250-450); PERCENT IRON SATURATION 9.3 % (15.0-55.0)
[2018-10-14] MEDS: LORazepam 2 MG/ML Syringe 0.25 MG IV (08:44)
[2018-10-14] MEDS: Famotidine 20mg IV Push Syringe Q24 300 MG IV (08:45)
[2018-10-14] MEDS: 0.9% NaCl Peripheral Flush Adult/Peds IV ×2 (08:45→22:09)
--- NOTE | 2018-10-14 09:00 | NURSING ---
called report to Alem in [facility] at this time.
--- NOTE | 2018-10-14 10:24 | OP.PCM_ITS ---
Report of Operation Date of Procedure: 10/14/18 Pre-Operative Diagnosis: Question of left ureteral calculi Post-Operative Diagnosis: The same Surgery/Procedure Performed:: Cystoscopy, left retrograde pyelogram, interpretation of fluoroscopic images. Description of Surgical Findings:: 78-year-old female who presented to the hospital with left lower quadrant pain, CAT scan was done outside hospital and there was a dictation that they thought t hat there was a stone in the distal left ureter on my review of the CAT scan was not 100% convinced that there was a stone there but she continued to have pain in the hospital so recommended we take her surgery for retrograde pyelogram and possible ureteroscopy extraction of stone. 78-year-old female taken back to the operating room after smooth induction of anesthesia she was placed in dorsolithotomy position the urethra vaginal area prepped and draped in usual fashion. Went into the bladder with a 21 Singaporean rigid cystourethroscope. The entire length the urethra was normal. The bladder was normal. The left and right ureteral orifice were identified and normal. I then cannulated the left ureteral orifice with a Glidewire and a Pollack catheter. Advanced the Pollack catheter all the way up to the kidney. Injected contrast into the kidney and there was no hydronephrosis of the kidney. Then pull the catheter back along the course of the ureter and there was no hydroureter. I then went all the way down to the distal ureter injected contrast pulled the catheter out and then allow the ureter the drain in the ureter was draining well contrast was effluxing nicely from the left ureter with no obstruction. Therefore I did not see a stone on retrograde pyelogram there was no blockage of the collecting system or the left urinary system. Drain the bladder patient anesthetic was reversed and will let the family know the finding that there is no kidney stone. Type of Anesthesia:: General Drains: none - Admit VTE Documentation VTE Present on Admission: No VTE Mechan Device Prophylaxis: SCD's
--- NOTE | 2018-10-14 15:02 | PCM.PROGNOTE ---
Patient Problems: Active and Suspected Problems (Last Reviewed 10/12/18 @ 07:42 by Sabas Garcia MD) Ureteric stone (Acute) Diverticulitis (Suspected) SADIA (acute kidney injury) (Acute) Subjective: Day #3 antibiotics-metronidazole and Cipro Afebrile since admission Vital signs are stable. Pulse ox on room air is 93 to 96%. All lab was personally reviewed. White blood cell count today is 9.6, down from 11.3 on 10/13/2018. MCV is low at 80. Serum iron is low at 27 and the iron saturation is low at 9.3. Ferritin is 41 but this is likely falsely elevated secondary to ferritin being an acute phase reactant and the patient having an acute infection.Hemoglobin is stable at 9.8 and platelets are within normal limits. The reticulocyte count is not elevated. She was seen and examined before and after surgery today. Post op she denied any L groin pain. I reviewed Dr. Garcia's operative report and there was no stone found at the time of cystoscopy. There was no hydronephrosis and no hydroureter present. Objective: General: sleepy post-op but, awakens easily, Oriented x3, Cooperative, No apparent distress, Well developed, Well nourished, now denies any Left groin pain HEENT: Atraumatic, Normocephalic Neck: Supple Lungs: Clear to auscultation Cardiovascular: Regular rate, Regular Rhythm, No murmurs, No Gallop Abdomen: Bowel Sounds Present, Soft, Distended and tympanic today, denies pain with palpation in the left flank and the left inguinal area. Extremities: No cyanosis, No edema Musculoskeletal: Arthritic Changes Neurological: Cranial nerves II-XII grossly intact, Neuro grossly intact Psych/Mental Status: Appropriate, flat affect, anxious prior to surgery - received a small dose of IV ativan - Physical Exam Vital Signs Temp Pulse Resp BP Pulse Ox 98.1 F 77 18 131/67 H 96 10/14/18 14:00 10/14/18 14:00 10/14/18 14:00 10/14/18 14:10/14/18 14:00 Oxygen Delivery Method Room Air Weight: 155 lb 4.804 oz Body Mass Index (BMI) 27.5 Intake and Output for Last 24 Hours 10/12/18 10/13/1819 23:59 23:59 23:59 Intake Total 3501 / 3501 2016 2176 / 2176 Output Total 800 / 800 1800 / 1800 300 / 300 Balance 2701 / 2701 217 / 217 1876 / 1876 Laboratory Tests Past 24 Hrs 10/14/18 10/14/18 10/14/18 05:35 05:35 05:35 WBC 9.6 RBC 3.94 L Hgb 9.8 L Hct 31.8 L MCV 80.7 L MCH 24.9 L MCHC 30.8 L RDW 15.3 H RDW Differential 44.6 H Plt Count 300 MPV 10.3 Immature Plt Fraction 2.0 Retic Count 1.03 Immature Retic Fraction 18.90 H Retic Hgb Equivalent 26.0 L Iron 27 L TIBC 290 Iron Saturation 9.3 L Ferritin 41 Stone Size Stone Weight Stone Color 10/14/18 13:25 WBC RBC Hgb Hct MCV MCH MCHC RDW RDW Differential Plt Count MPV Immature Plt Fraction Retic Count Immature Retic Fraction Retic Hgb Equivalent Iron TIBC Iron Saturation Ferritin Stone Size Pending Stone Weight Pending Stone Color Pending Medical Necessity - Tobacco Use Smoking Status: Former smoker - Quit smoking May 2018 after diagnosis of sepsis due to pneumonia. Assessment/Plan All Active Problems (Last Reviewed 10/12/18 @ 07:42 by Sabas Garcia MD) Ureteric stone (Acute) SADIA (acute kidney injury) (Acute) Impressions 1. abdominal pain with leukocytosis - etiology? due to diverticulitis? stone in the distal left ureter? pyelonephritis? no stone at the time of surgery so it was either never there in the first place OR it passed. Minimal pyuria at [facility] the emergency department and no culture was done. 2. ARF on CRF - ED at [facility] stated the baseline creat is 1.2 - 1.4. I reviewed the lab we received from her PCP and since May of 2018 the creat has ranged from 1.0-1.3 3. Nephrolithiasis ? 4. Chronic pain syndrome/chronic back pain-follows with Dr. Dr. Leonard and is dependent on methadone 5. Hypertension 6. History of pancreatitis 7. History of depression 8. Gs-reoxbp-ggay smoking in May 2018 9. Microcytic anemia secondary to iron deficiency Increase activity today. DC the MS and continue Methadone as she takes it as an OP repeat a CT of the abdomen with oral contrast only in light of the elevated creat She has been on Lisinopril.....now on hold. BP is OK so may not restart to see if the creat improves over time Probable DC tomorrow Recheck CBC with differential and BMP in the a.m. Start an iron supplement Hemoccult stool Code Visit Inpatient E&M: 97001 Subs Hosp L3
[2018-10-14] MEDS: Iron Polysaccharide Complex 150 MG CAPSULE PO (15:08)
--- NOTE | 2018-10-14 15:19 | CT_ITS ---
We are attempting to reach an attending provider to discuss findings. An addendum with communication details will be sent when the communication is complete. STUDY: CT ABDOMEN AND PELVIS WITH CONTRAST REASON FOR EXAM: Female, 78 years old. Left lower abdominal pain RADIATION DOSAGE (If Supplied By Facility): CTDIvol = ( 14.78 ) mGy, DLP = ( 607.17 ) mGycm TECHNIQUE: Transaxial images were obtained from the dome of the diaphragm to the symphysis pubis with oral contrast. 15 Oral Gastrografin was administered. Sagittal and coronal images were reconstructed. Individualized dose optimization techniques were used for this CT. COMPARISON: None. FINDINGS: There is fibrotic stranding at the lung bases. The visualized portions of the heart are within normal limits. There is decreased attenuation of the liver consistent with steatosis. There are surgical clips in the gallbladder fossa consistent with a prior cholecystectomy. Normal spleen. There is diffuse atrophy of the pancreas. Normal bilateral adrenal glands. Nonobstructing right renal calculi are seen measuring up to 5 mm. Nonobstructing left renal calculi are also noted, also measuring up to 5 mm. A small amount of gas is seen in the left renal pelvis and central kidney. Normal visualized stomach. Normal small intestine. There is diastasis of the rectus musculature with knuckle of transverse colon located immediately beneath the skin surface. The appendix is visualized and appears normal. There are calcified plaques of the abdominal aorta. Normal inferior vena cava. Normal retroperitoneum. A small amount of gas is seen in the urinary bladder. There is absence of the uterus consistent with a prior hysterectomy. There are status post posterior spinal fusion changes with rods and interpeduncular screws from L1 to L5. CT/Abdomen/Pel W ORAL Cont Only IMPRESSION: 1. Hepatic steatosis. 2. Status post cholecystectomy and hysterectomy. 3. Diffuse pancreatic atrophy. 4. Nonobstructing bilateral renal calculi. 5. A small amount of gas is seen in the left renal pelvis and central left kidney, as well as within the urinary bladder. The differential diagnosis would include emphysematous pyelonephritis versus emphysematous pyelitis. Electronically Signed: Walter Yeager MD at 19:18 EDT , Service support ,
[2018-10-14] MEDS: Zolpidem Tartrate 5 MG Tablet PO (22:24)
[2018-10-15] MEDS: Ciprofloxacin 200 MG/100 ML BAG 100 MG IV ×2 (00:11→09:50)
[2018-10-15] MEDS: Acetaminophen 325 MG Tablet 650 MG PO ×2 (00:12→08:52)
--- NOTE | 2018-10-15 01:33 | NURSING ---
0120 Patient told aide that Tylenol was not working for pain. When this this RN went to check on patient she was sleeping.
[2018-10-15] MEDS: Methadone 10 MG Tablet PO ×2 (06:14→13:50)
[2018-10-15] MEDS: metroNIDAZOLE 500 MG/100 ML BAG 100 MG IV (06:15)
[2018-10-15 06:24] VITALS: BP 169/82; PULSE 77; RESP 18; TEMP 36.8; O2SAT 94
[2018-10-15 06:27] LABS: Absolute Lymphocyte Count 3.31 X10^3/ul (0.83-4.51); Absolute Neutrophil Count 4.8 X10^3/uL (2.0-7.7); Basophil# 0.02 X10^3/uL; Basophil% 0.2 % (0-1); Eosinophils% 3.1 % (0-5); Hematocrit 31.6 % (37-47); Hemoglobin 9.6 g/dl (12.0-15.0); Lymphocyte # 3.31 X10^3/ul (4.0); Lymphocyte % 33.8 % (19-41); Mean Corp Hgb Conc 30.4 g/gl (32-36); Mean Corpuscular Hgb 24.7 pg (27.0-32.0); Mean Corpuscular Volume 81.2 fL (81-99); Mean Platelet Vol. 10.4 fl (6.2-12.0); Monocyte# 1.24 X10^3/uL; Monocyte% 12.7 % (0-10); Neutrophil # 4.79 X10^3/uL (2.7-7.7); Platelet Count 317 K/mm3 (150-450); RBC Distribution Width CV 15.3 % (11.6-14.6); RBC Distribution Width SD 44.3 fl (35.1-43.9); Red Blood Count 3.89 M/mm3 (4.2-5.4); White Blood Count 9.8 K/mm3 (4.4-11.0)
[2018-10-15 06:30] LABS: POSITIVE COUNT NO; POSITIVE DIFFERENTIAL NO; POSITIVE MORPHOLOGY NO
[2018-10-15 06:32] VITALS: BP 169/82; PULSE 77
[2018-10-15] MEDS: hydrALAZINE 20 MG/ML Vial 5 MG IV (06:32)
[2018-10-15 06:42] LABS: Anion Gap 9 (5-15); BUN 16 mg/dL (7-18); BUN/Creat Ratio 13.2 RATIO (10-20); Calcium,Total 8.6 mg/dL (8.5-10.1); Chloride 107 mmol/L (98-107); Creatinine, Serum 1.21 mg/dL (0.55-1.02); EST Glomerular Filtration Rate 46 mL/min (>60); Est Glom Filt Rate - Afr Amer 55 mL/min (>60); Glucose 137 mg/dL (74-106); Sodium Level 142 mmol/L (136-145)
[2018-10-15 07:02] VITALS: O2SAT 94
[2018-10-15 08:45] VITALS: BP 168/86; PULSE 94; RESP 18; TEMP 36.8; O2SAT 96
[2018-10-15] MEDS: Iron Polysaccharide Complex 150 MG CAPSULE PO (08:52)
--- NOTE | 2018-10-15 13:26 | CASEMGMT ---
RN CM reviewed therapy notes and additional therapy recommended. RN CM in to speak with patient regarding HHC or therapy at discharge. Patient denies need for HHC or therapy at discharge. CM will continue to follow this patient and plan for a safe discharge.
[2018-10-15 13:50] VITALS: BP 150/70; PULSE 85; RESP 18; TEMP 36.8; O2SAT 97
[2018-10-15] MEDS: 0.9% NaCl Peripheral Flush Adult/Peds IV (13:50)
--- NOTE | 2018-10-15 13:57 | DCINST_ITS ---
- Discharge Diagnoses Current Active Problems: Current Active and Chronic Problems (Last Reviewed 10/12/18 @ 07:42 by Sabas Garcia MD) Ureteric stone (Acute) SADIA (acute kidney injury) (Acute) You will use the following diet at home:: Cardiac Your food should be the consistency of: Regular Your liquids should be the consistency of: Regular/Thin Discharge Activity: May not drive while taking narcotic pain medications. Call your doctor if you observe: Fever of 101 or Higher, Inability to urinate, Dizziness, Fainting spells, Chest pain, Uncontrolled pain, - - Call your PCP if severe diarrhea ( > 5 stools a day), painful sores in the mouth, painful swallowing, rash or itching. Taking a probiotic such as Lactobacillus or Kefir can help with loose stools while taking antibiotics. Instructions: Treating Constipation Additional Instructions: 1. Your kidney function improved in the hospital with hydration and with pasing the kidney stone. There was no kidney stone when Dr. Garcia looked in your bladder in surgery. The kidney function may also improved since the Lisinopril was held.......Lisinopril can cause kidney failure in some patients. 2. the Methadone is causing you to have constipation. The colon was packed full of stool on the CT scan of the abdomen. I recommend that you take Miralax every day to keep the stool soft. 3. You are anemic and the iron is low in the blood. I have started you on an iron supplement which you will take once a day with food. Iron can also cause constipation so be sure to take the Miralax. Usually patients become iron deficient because they are losing blood somewhere......please discuss this with your PCP. Allergies/Adverse Reactions: Allergies amphetamine [From Adderall] Allergy (Verified 10/12/18 00:22) Unknown aspirin Allergy (Verified 10/12/18 00:22) Bleeding dextroamphetamine [From Adderall] Allergy (Verified 10/12/18 00:22) Unknown gabapentin [From Neurontin] Allergy (Verified 10/12/18 00:22) Unknown tramadol [From Ultram] Allergy (Verified 10/12/18 00:22) Unknown Medications to take at Discharge Amlodipine Besylate 5 mg PO DAILY 10/12/18 Duloxetine Hcl [Cymbalta] 60 mg PO DAILY 10/12/18 Methadone HCl 10 mg PO TID 10/12/18 Omeprazole 40 mg PO DAILY 10/12/18 Ondansetron HCl 4 mg PO Q8H PRN PRN 10/12/18 Acetaminophen [Tylenol Tablet] 650 mg PO Q6H PRN PRN tablet 10/15/18 Amoxicillin/Potassium Clav [Augmentin 500-125 Tablet] 1 each PO BID #6 tablet 10/15/18 Iron Polysaccharide Complex [Ferrex 150] 150 mg PO DAILYCM #30 capsule 10/15/18 Polyethylene Glycol 3350 [Miralax] 17 gm PO DAILY #30 pkt 10/15/18 The following prescriptions were given: Iron Polysaccharide Complex [Ferrex 150] 150 mg PO DAILYCM #30 capsule Polyethylene Glycol 3350 [Miralax] 17 gm PO DAILY #30 pkt Amoxicillin/Potassium Clav [Augmentin 500-125 Tablet] 1 each PO BID #6 tablet Please follow up with your Primary Care Physician in: 5-7 days Test Results: Test results from this visit will be discussed in further detail at your follow- up appointment, if applicable. Proposed Discharge Date: 10/15/18
--- NOTE | 2018-10-15 14:08 | PCM.DC.SUM ---
Discharge Date and Diagnosis Date of Admission: 10/12/18 Date of Discharge: 10/15/18 - Primary Discharge Diagnosis Active and Suspected Problems (Last Reviewed 10/12/18 @ 07:42 by Sabas Garcia MD)SADIA (acute kidney injury) (Acute) suspected UTI Ureteric stone (Acute) ARF Constipation (Acute) - Secondary Discharge Diagnosis Chronic Problems (Last Reviewed 10/12/18 @ 07:42 by Sabas Garcia MD) Microcytic anemia (Chronic) Iron deficiency (Chronic) Depression (Chronic) HTN (hypertension) (Chronic) Methadone dependence (Chronic) Hospital Course and Treatment Imaging Results: Clinical Impression(s) from Imaging Studies KUB X-Ray 10/12/18 00:36 IMPRESSION: Nonspecific bowel gas pattern without evidence of obstruction. Consider constipation. Electronically Signed: Alexander Canseco MD at 7:29 EDT , Service support , Abdomen CT 10/14/18 15:19 IMPRESSION: 1. Hepatic steatosis. 2. Status post cholecystectomy and hysterectomy. 3. Diffuse pancreatic atrophy. 4. Nonobstructing bilateral renal calculi. 5. A small amount of gas is seen in the left renal pelvis and central left kidney, as well as within the urinary bladder. The differential diagnosis would include emphysematous pyelonephritis versus emphysematous pyelitis. Electronically Signed: Walter Yeager MD at 19:18 EDT , Service support , ADDENDUM: 10/14/18 194 IMPRESSION: 1. Hepatic steatosis. 2. Status post cholecystectomy and hysterectomy. 3. Diffuse pancreatic atrophy. 4. Nonobstructing bilateral renal calculi. 5. A small amount of gas is seen in the left renal pelvis and central left kidney, as well as within the urinary bladder. The differential diagnosis would include emphysematous pyelonephritis versus emphysematous pyelitis. N.B. : The above information has been verbally conveyed by Walter Yeager MD to Charge Nurse Luisa Mcbride RN, on 10/14/2018 19:34:33 (ET). Electronically Signed: Walter Yeager MD at 19:18 EDT , Service support , Microbiology 10/15/18 06:00 Stool Stool Occult Blood (RAJAN) - Final Dr. Hector Garcia-urology Operations: None Procedures: - - Cystoscopy, left retrograde pyelogram Summary of Care Provided: Patient is a 78-year-old female transferred to [facility] on 10/12/2018 from [facility] with a complaint of severe abdominal pain. Her past medical history is significant for chronic back pain, methadone dependence, osteoarthritis, history of pancreatitis, hypertension and depression. She initially presented to the [facility] complaining of severe left inguinal pain that started 2 days ago. The pain increases with movement. She had a subjective fever but did not take her temperature. She denied any shaking chills. She denied dysuria. She did complain of nausea with no emesis. CT scan of the abdomen and pelvis done at [facility] showed left perirenal stranding and a 5 mm left distal ureteral stone. White blood cell count was elevated at 18.7. There was also an inconclusive dx of possible diverticular disease. She denied diarrhea. She thought her last BM was 6/2. Her bowels sometimes do not move well due to Methadone. She is not on a stool softener. KUB done at [facility] showed stool present throughout the colon. She also c/o left flank pain. No blood cultures or a urine culture were ordered at admission. She was started on Rocephin and this was changed the next day to Cipro due to possible diverticulitis diagnosed at ED. Dr. Garcia was consulted and she was taken to the operating room on 10/14/2018 for cystoscopy and retrograde pyelogram. There was no stone at the time of surgery. Postoperatively the left inguinal/groin pain was gone. She denied left flank pain. Iron studies were done because of the microcytic anemia and were consistent with iron deficiency. She was started on an iron supplement. On 10/15/18 she was afebrile and felt well. She had no flank or L inguinal pain. She was discharged home on on polyethylene glycol for chronic constipation, Augmentin 500 mg 1 twice daily to complete treatment for suspected urinary tract infection and an iron supplement to take once daily. She will follow-up with her primary care physician in 5 to 7 days and will need a work up for the etiology of the iron deficiency. She will continue to follow up with pain management. PHYSICAL EXAM: GENERAL: alert, oriented X 3, Cooperative, NAD ORAL: moist mucosa, no mucosal lesions NECK: No JVD, supple, trachea midline LUNGS: CTA, symmetric chest expansion HEART: RRR, Normal S1 and S2, no rub, no gallop ABDOMEN: soft, NT, ND, BS present, no guarding with palpation EXTREMITIES: no edema, no cyanosis, no calf tenderness SKIN: No rashes, no breakdown NEUROLOGIC: no focal neurologic deficits PSYCH: appropriate, normal affect, pleasant This note was generated with [employer] dictation software. It may contain incorrect words, spelling, and punctuation that were not noted in checking the note before signing. - Physical Exam Vital Signs Temp Pulse Resp BP Pulse Ox 98.2 F 94 18 168/86 H 96 10/15/18 08:45 10/15/18 08:45 10/15/18 08:45 10/15/18 08:45 10/15/18 08:45 Oxygen Delivery Method Room Air Weight: 155 lb 4.804 oz Body Mass Index (BMI) 27.5 Intake and Output for Last 24 Hours 10/13/18 10/14/18 10/15/18 23:59 23:59 23:59 Intake Total 2016 2559 / 2559 1110 / 1110 Output Total 1800 / 1800 300 / 300 825 / 825 Balance 217 / 217 2259 / 2259 285 / 285 Microbiology Past 72 Hours 10/15/18 06:00 Stool Occult Blood (RAJAN) - Final Stool Laboratory Tests Past 24 Hrs 10/15/18 10/15/18 05:40 05:40 WBC 9.8 RBC 3.89 L Hgb 9.6 L Hct 31.6 L MCV 81.2 MCH 24.7 L MCHC 30.4 L RDW 15.3 H RDW Differential 44.3 H Plt Count 317 MPV 10.4 Immature Gran % (Auto) 1.200 H Neut % (Auto) 49.0 Lymph % (Auto) 33.8 [place] % (Auto) 12.7 H Eos % (Auto) 3.1 Baso % (Auto) 0.2 Absolute Neuts (auto) 4.8 Absolute Lymphs (auto) 3.31 Total Counted Not Reportable Sodium 142 Potassium 4.0 Chloride 107 Carbon Dioxide 26.0 Anion Gap 9 BUN 16 Creatinine 1.21 H Estim Creat Clear Calc 31.70 Est GFR (MDRD) Af Amer 55 L Est GFR (MDRD) Non-Af 46 L BUN/Creatinine Ratio 13.2 Glucose 137 H Calcium 8.6 Discharge Activity: May not drive while taking narcotic pain medications. Call your doctor if you observe: Fever of 101 or Higher, Inability to urinate, Dizziness, Fainting spells, Chest pain, Uncontrolled pain, - - Call your PCP if severe diarrhea ( > 5 stools a day), painful sores in the mouth, painful swallowing, rash or itching. Taking a probiotic such as Lactobacillus or Kefir can help with loose stools while taking antibiotics. Home Medications: Medications to take at Discharge Amlodipine Besylate 5 mg PO DAILY 10/12/18 Duloxetine Hcl [Cymbalta] 60 mg PO DAILY 10/12/18 Methadone HCl 10 mg PO TID 10/12/18 Omeprazole 40 mg PO DAILY 10/12/18 Ondansetron HCl 4 mg PO Q8H PRN PRN 10/12/18 Acetaminophen [Tylenol Tablet] 650 mg PO Q6H PRN PRN tablet 10/15/18 Amoxicillin/Potassium Clav [Augmentin 500-125 Tablet] 1 each PO BID #6 tablet 10/15/18 Iron Polysaccharide Complex [Ferrex 150] 150 mg PO DAILYCM #30 capsule 10/15/18 Polyethylene Glycol 3350 [Miralax] 17 gm PO DAILY #30 pkt 10/15/18 Following Prescrptions Were Given to Patient: Iron Polysaccharide Complex [Ferrex 150] 150 mg PO DAILYCM #30 capsule Polyethylene Glycol 3350 [Miralax] 17 gm PO DAILY #30 pkt Amoxicillin/Potassium Clav [Augmentin 500-125 Tablet] 1 each PO BID #6 tablet Please follow up with your Primary Care Physician in: 5-7 days Patient Instructions: Treating Constipation Disposition: Home Minutes spent on discharge:: 30 Patient Condition:: Good Medical Necessity - Tobacco Use Smoking Status: Former smoker - Quit smoking May 2018 after diagnosis of sepsis due to pneumonia. Tobacco Use: Non-smoker Meaningful Use Info Meaningful Use Diagnoses (Choose all that apply): None applicable Code Visit Inpatient E&M: 40957 Disch Hosp
[2018-10-21 11:17] LABS: Comment Note: (.)
== END 2018-10-15 15:55 | disposition home or self-care (01) | DRG 694 ==
PROVIDERS: Anesthesiology; Urology; Admitting Provider Hospitalist; Visit Provider Internal Medicine
PROC: BT1F1ZZ Fluoroscopy of Left Kidney, Ureter and Bladder using Low Osmolar Contrast (ICD-10-PCS; CPT 52356; principal; 2018-10-14 09:45)
DX: N20.1 Calculus of ureter (principal); N17.9 Acute kidney failure, unspecified; F11.20 Opioid dependence, uncomplicated; K59.00 Constipation, unspecified; G89.4 Chronic pain syndrome; F32.9 Major depressive disorder, single episode, unspecified; M19.90 Unspecified osteoarthritis, unspecified site; D72.829 Elevated white blood cell count, unspecified; I10 Essential (primary) hypertension; Z79.899 Other long term (current) drug therapy; Z87.891 Personal history of nicotine dependence; K21.9 Gastro-esophageal reflux disease without esophagitis; Z86.39 Personal history of other endocrine, nutritional and metabolic disease; R10.32 Left lower quadrant pain; D50.9 Iron deficiency anemia, unspecified
CPT/HCPCS: 36415; 74018; 74176; 76000; 80048; 80053; 82274; 82360; 82728; 83540; 83550; 83735; 84100; 85025; 85027; 85045; 85610; 88300; 93005; 97162; 97166; 97530; 97802; 99406; J7030; A4216; C1769; J0744; J2405; J3490